=== PATIENT | female | born 1980 | race Caucasian/White ===

== ENCOUNTER 2016-04-24 20:26 | Emergency (ER) | payer OTHER ==
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
--- NOTE | 2016-04-24 22:27 | ED ORDER SUMMARY ---
..... Patient: EDUARDO NATH OrderSheet [facility] VisitID: [id number] [address] [place] [address] 35y, F Registration Date/Time: 04/24/2016 ORDER SHEET Weight: 72.5 kg (stated) Allergies: No Known Drug Allergy GENERAL ORDERS: Cervical Spine 2 or 3V Urgent (21:43 04/24/2016 Rodríguez ELLIOTT) (Ack 21:51 Jackeline ER Cleat Maker) (22:10 MCampbell) Chest 2V Urgent (21:44 04/24/2016 Rodríguez ELLIOTT) (Ack 21:51 Jackeline ER Cleat Maker) (22:10 MCampbell) MEDICATION ORDERS: Ibuprofen PO 600 mg (NOW) (22:23 04/24/2016 Rodríguez ELLIOTT) (22:38 Apurva R.N.) IV FLUIDS: ORDER SHEET NOTES: [Electronically signed by Riri Ortiz R.N. (22:40 04/24/2016)] [Electronically signed by Raoul Ya MD (21:55 04/26/2016)] [Electronically locked/signed by Riri Ortiz R.N. (22:40 04/24/2016)]
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
--- NOTE | 2016-04-24 22:27 | ED ORDER SUMMARY ---
..... Patient: EDUARDO NATH OrderSheet [facility] VisitID: [id number] [address] [place] [address] 35y, F Registration Date/Time: 04/24/2016 ORDER SHEET Weight: 72.5 kg (stated) Allergies: No Known Drug Allergy GENERAL ORDERS: Cervical Spine 2 or 3V Urgent (21:43 04/24/2016 Rdoríguez ELLIOTT) (Ack 21:51 Jackeline ER Electromechanical Equipment Tester) (22:10 MCampbell) Chest 2V Urgent (21:44 04/24/2016 Rodríguez ELLIOTT) (Ack 21:51 Jackeline ER Electromechanical Equipment Tester) (22:10 MCampbell) MEDICATION ORDERS: Ibuprofen PO 600 mg (NOW) (22:23 04/24/2016 Rodríguez ELLIOTT) (22:38 Apurva R.N.) IV FLUIDS: ORDER SHEET NOTES: [Electronically signed by Riri Ortiz R.N. (22:40 04/24/2016)] [Electronically signed by Raoul Ya MD (21:55 04/26/2016)] [Electronically locked/signed by Riri Ortiz R.N. (22:40 04/24/2016)]
--- NOTE | 2016-04-26 21:56 | ED MAR SUMMARY ---
..... Medication Administration Record [facility] [address] [place] [address] Patient: EDUARDO NATH Visit ID: [id number] 35y, F Weight: 72.5 kg Height/Length: 65 in BMI: 26.6 ALLERGIES: No Known Drug Allergy Given 22:38 04/24/2016 Riri Ortiz R.N. Medication Administered: IBUPROFEN [PO], Dose: 600 mg Tablets PO. Medication Ordered: Ibuprofen PO 600 mg (NOW).
--- NOTE | 2016-04-26 21:56 | ED MED RECONCILIATION SUMMARY ---
Patient: EDUARDO NATH Medication Reconciliation Report [facility] VisitID: [id number] [address] [place] [address] 35y, F Registration Date/Time: 04/24/2016 Weight: 72.5 kg Height/Length: 65 in. BMI: 26.6 ALLERGIES: No Known Drug Allergy The patient's Home Medications are listed below: THE FOLLOWING MEDICATIONS NEED TO BE RECONCILED: [place] Oral Methylphenidate HCl Oral The source(s) of the original Home Medication information: patient The following Medications were given to the patient in the Emergency Department: Ibuprofen [PO] PO 600 mg, administered: 04/24/2016 10:38:00 PM The following Medications were prescribed to the patient: None.
--- NOTE | 2016-04-26 21:56 | ED MED RECONCILIATION SUMMARY ---
Patient: EDUARDO NATH Medication Reconciliation Report [facility] VisitID: [id number] [address] [place] [address] 35y, F Registration Date/Time: 04/24/2016 Weight: 72.5 kg Height/Length: 65 in. BMI: 26.6 ALLERGIES: No Known Drug Allergy The patient's Home Medications are listed below: THE FOLLOWING MEDICATIONS NEED TO BE RECONCILED: [place] Oral Methylphenidate HCl Oral The source(s) of the original Home Medication information: patient The following Medications were given to the patient in the Emergency Department: Ibuprofen [PO] PO 600 mg, administered: 04/24/2016 10:38:00 PM The following Medications were prescribed to the patient: None.
--- NOTE | 2016-04-26 21:56 | ED MAR SUMMARY ---
..... Medication Administration Record [facility] [address] [place] [address] Patient: EDUARDO NATH Visit ID: [id number] 35y, F Weight: 72.5 kg Height/Length: 65 in BMI: 26.6 ALLERGIES: No Known Drug Allergy Given 22:38 04/24/2016 Riri Ortiz R.N. Medication Administered: IBUPROFEN [PO], Dose: 600 mg Tablets PO. Medication Ordered: Ibuprofen PO 600 mg (NOW).
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
== END 2016-04-24 22:42 | disposition home or self-care (01) ==
LOC: ED SRH 20:26
DX: S29.012A Strain of muscle and tendon of back wall of thorax, initial encounter (principal); S16.1XXA Strain of muscle, fascia and tendon at neck level, initial encounter; V43.62XA Car passenger injured in collision with other type car in traffic accident, initial encounter; Y92.410 Unspecified street and highway as the place of occurrence of the external cause; F17.210 Nicotine dependence, cigarettes, uncomplicated